=== PATIENT | male | born 1945 | race Caucasian/White ===

== ENCOUNTER → 2016-12-24 | Outpatient (REF) | payer MEDICARE, OTHER ==
[~2016-12-24] MED LIST: /ATOR40TA PO; CEPH2CAP PO; FISHOIL PO; LIPI80TA PO; NORCOTAB PO; OMEP20CA3 PO; [UNRECOGNIZED DRUG - CODE] PO
[2016-12-24 13:02] LABS: ALBUMIN 3.7 GM/DL (3.2-5.2); ALBUMIN/GLOBULIN RATIO 1.06 (1.00-1.93); ALKALINE PHOSPHATASE 63 U/L (45-117); ALT/SGPT 38 U/L (12-78); ANION GAP 7 MEQ/L (8-16); AST/SGOT 20 U/L (15-37); BILIRUBIN,TOTAL 0.3 MG/DL (0.2-1.0); BLOOD UREA NITROGEN 13 MG/DL (7-18); CALCIUM LEVEL 8.3 MG/DL (8.8-10.2); CARBON DIOXIDE LEVEL 29 MEQ/L (21-32); CHLORIDE LEVEL 104 MEQ/L (98-107); CREATININE FOR GFR 1.16 MG/DL (0.70-1.30); GLOMERULAR FILTRATION RATE > 60.0 (>49); GLUCOSE, FASTING 150 MG/DL (80-110); POTASSIUM SERUM 4.4 MEQ/L (3.5-5.1); SODIUM LEVEL 140 MEQ/L (136-145); TOTAL PROTEIN 7.2 GM/DL (6.4-8.2)
[2016-12-24 13:08] LABS: FOLATE > 24.0 NG/ML; VITAMIN B12 LEVEL 279 PG/ML
== END ==
LOC: M SFHCADAM 08:41
PROVIDERS: ATTEND Physician Assistant
DX: E11.9 Type 2 diabetes mellitus without complications (principal); N52.9 Male erectile dysfunction, unspecified; G62.9 Polyneuropathy, unspecified; Z12.5 Encounter for screening for malignant neoplasm of prostate
CPT/HCPCS: 80053; 82043; 82607; 82746; 83036; G0103

== ENCOUNTER → 2017-06-23 | Outpatient (REF) | payer MEDICARE, OTHER ==
[2017-06-23 12:51] LABS: ALBUMIN 3.6 GM/DL (3.2-5.2); ALBUMIN/GLOBULIN RATIO 0.92 (1.00-1.93); ALKALINE PHOSPHATASE 63 U/L (45-117); ALT/SGPT 31 U/L (12-78); ANION GAP 8 MEQ/L (8-16); AST/SGOT 13 U/L (15-37); BILIRUBIN,TOTAL 0.4 MG/DL (0.2-1.0); BLOOD UREA NITROGEN 24 MG/DL (7-18); CALCIUM LEVEL 8.4 MG/DL (8.8-10.2); CARBON DIOXIDE LEVEL 28 MEQ/L (21-32); CHLORIDE LEVEL 106 MEQ/L (98-107); CREATININE FOR GFR 1.06 MG/DL (0.70-1.30); FREE T4 1.13 NG/DL (0.76-1.46); GLOMERULAR FILTRATION RATE > 60.0 (>42); GLUCOSE, FASTING 140 MG/DL (83-110); POTASSIUM SERUM 4.8 MEQ/L (3.5-5.1); SODIUM LEVEL 142 MEQ/L (136-145); TOTAL PROTEIN 7.5 GM/DL (6.4-8.2)
== END ==
LOC: M SFHCADAM 09:11
PROVIDERS: ATTEND Physician Assistant
DX: E11.9 Type 2 diabetes mellitus without complications (principal)

== ENCOUNTER → 2017-08-31 | Outpatient (REF) | payer MEDICARE, OTHER | LOC: M SFHCADAM 14:14 | PROVIDERS: ATTEND Physician Assistant | DX: R19.4 Change in bowel habit (principal) ==

== ENCOUNTER → 2017-09-28 | Outpatient (REF) | payer MEDICARE, OTHER | LOC: M SFHCADAM 12:32 | PROVIDERS: ATTEND Physician Assistant | DX: R19.4 Change in bowel habit (principal) ==

== ENCOUNTER → 2018-08-06 | Outpatient (REF) | payer MEDICARE, OTHER ==
[~2018-08-06] MED LIST changes: +ALTA1CAP4 PO; +ASPI1TAB PO; +BACITAB PO; +CALCTAB68 PO; +FISH7.5C PO; +LEVO25TA5 PO; +METF500T13 PO; +MULT1TAB10 PO; +PROP120C PO; +VITA500T3 PO; +VITA50TA43 PO
[2018-08-06 10:08] LABS: HEMATOCRIT 43.5 % (42.0-52.0); HEMOGLOBIN 14.4 g/dl (13.5-17.5); MEAN CORPUSCULAR HEMOGLOBIN 30.7 pg (27.0-33.0); MEAN CORPUSCULAR HGB CONC 33.1 g/dl (32.0-36.5); MEAN CORPUSCULAR VOLUME 92.8 fl (80.0-96.0); PLATELET COUNT, AUTOMATED 209 10^3/uL (150-450); RED BLOOD COUNT 4.69 10^6/uL (4.30-6.10); WHITE BLOOD COUNT 6.9 10^3/uL (4.0-10.0)
[2018-08-06 11:06] LABS: ALBUMIN 3.6 GM/DL (3.2-5.2); ALT/SGPT 32 U/L (12-78); BILIRUBIN,TOTAL 0.4 MG/DL (0.2-1.0); BLOOD UREA NITROGEN 16 MG/DL (7-18); CALCIUM LEVEL 8.4 MG/DL (8.8-10.2); CARBON DIOXIDE LEVEL 29 MEQ/L (21-32); CHLORIDE LEVEL 102 MEQ/L (98-107); CHOLESTEROL LEVEL 151 MG/DL (<200); CHOLESTEROL RISK RATIO 4.194 (<5); CREATININE FOR GFR 1.13 MG/DL (0.70-1.30); FERRITIN 16 NG/ML (26-388); FOLATE > 24.0 NG/ML; FREE T4 1.08 NG/DL (0.76-1.46); GLOMERULAR FILTRATION RATE > 60.0 (>42); GLUCOSE, FASTING 171 MG/DL (70-100); HDL CHOLESTEROL 36 MG/DL (>40); IRON (FE) 97 UG/DL (65-175); LDL CHOLESTEROL 55 MG/DL (<100); NON-HDL-C 115 MG/DL; PERCENT SATURATION 26.7 % (19.7-50.0); POTASSIUM SERUM 4.2 MEQ/L (3.5-5.1); SODIUM LEVEL 140 MEQ/L (136-145); TOTAL IRON BINDING CAPACITY 363 UG/DL (250-450); TOTAL PROTEIN 7.5 GM/DL (6.4-8.2); TRIGLYCERIDES LEVEL 300 MG/DL (<150)
[2018-08-06 12:26] LABS: HEMOGLOBIN A1c 6.9 %
== END ==
LOC: M SFHCADAM 08:42
PROVIDERS: ATTEND Physician Assistant
DX: E11.9 Type 2 diabetes mellitus without complications (principal); I10 Essential (primary) hypertension; E78.49 Other hyperlipidemia; E55.9 Vitamin D deficiency, unspecified; K21.9 Gastro-esophageal reflux disease without esophagitis; E61.1 Iron deficiency; Z68.32 Body mass index [BMI] 32.0-32.9, adult
CPT/HCPCS: 80053; 80061; 82306; 82607; 82728; 82746; 83036; 83550; 84439; 84443; 85027; 90682; G0008; G0463

== ENCOUNTER → 2018-08-26 | Outpatient (CLI) | payer MEDICARE, BC | LOC: M WHC 09:06 | DX: N43.3 Hydrocele, unspecified (principal); N50.3 Cyst of epididymis; K40.90 Unilateral inguinal hernia, without obstruction or gangrene, not specified as recurrent; N50.89 Other specified disorders of the male genital organs | CPT/HCPCS: 76870 ==

== ENCOUNTER → 2018-10-15 | Outpatient (CLI) | payer MEDICARE, BC, OTHER ==
--- NOTE | 2018-10-15 21:43 | ECGEPIP ---
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
== END ==
LOC: M EKG 10:59
PROVIDERS: ATTEND Anesthesiology
DX: Z01.818 Encounter for other preprocedural examination (principal); I10 Essential (primary) hypertension

== ENCOUNTER 2018-10-19 11:37 | Day surgery (SDC) | payer MEDICARE, BC, OTHER ==
[~2018-10-19] VITALS: Ht 170.2 cm; Wt 93.0 kg
[~2018-10-19 11:37] MED LIST changes: +LIDOCAINE 1% MDV 20ML VIAL SQ PRN; +LIDOCAINE 2% INJ 100 MG/5 ML SDV (FOR ANES.) As Ordered ONE; +MIDAZOLAM INJ 2 MG/2 ML VIAL (J2250) As Ordered ONE; +PROPOFOL 200 MG/20 ML VIAL As Ordered ONE; +ROCURONIUM BROMIDE 50 MG/5 ML VIAL As Ordered ONE; +fentaNYL 250 MCG/5 ML INJECTION (J3010) As Ordered ONE
[2018-10-19] MEDS ORDERED: LR 1,000 ML IV ONE (11:45)
[2018-10-19] MEDS ORDERED: LevoFLOXacin(LEVAQUIN)500 MG/100 ML BAG (J1956) As Ordered ONE (12:09)
[2018-10-19] MEDS ORDERED: BUPIVACAINE/EPIN 0.25% 30 ML VIAL As Ordered ONE (12:13)
[2018-10-19 12:20] VITALS: BP 160/99
[2018-10-19] MEDS ORDERED: PROPRANOLOL 60 MG LA CAP PO ONE (12:30)
[2018-10-19] MEDS ORDERED: LevoFLOXacin IV 500 MG in APPROPRIATE DILUENT 1 EA IV ONE (12:30)
[2018-10-19] MEDS ORDERED: ONDANSETRON 4MG/2ML VIAL (J2405) As Ordered ONE (13:56)
[2018-10-19] MEDS ORDERED: METOCLOPRAMIDE INJ 10MG/2ML VIAL (J2765) As Ordered ONE (13:57)
[2018-10-19] MEDS ORDERED: KETOROLAC 60 MG/2 ML VIAL (J1885) As Ordered ONE (13:57)
[2018-10-19] MEDS ORDERED: ALBUTEROL 6.7GM INHALER **FOR ANES. CART/OMNICELL ONLY As Ordered ONE (13:57)
[2018-10-19] MEDS ORDERED: SUGAMMADEX SODIUM 500 MG/5 ML VIAL (BRIDION) As Ordered ONE (13:57)
--- NOTE | 2018-10-19 14:32 | RO ---
DATE OF PROCEDURE: 10/19/2018 PREPROCEDURE DIAGNOSIS: Left inguinal hernia. POSTPROCEDURE DIAGNOSIS: Left inguinal hernia (incarcerated with sigmoid colon). SURGEON: Dusty Muñoz MD MICA SIZER: Kailyn Bejarano NP (provided trocar exchange, instrument exchange, mesh placement and abdominal wall closure). ANESTHESIA: General endotracheal anesthesia. ESTIMATED BLOOD LOSS: Minimal. PROCEDURE: Robotic-assisted laparoscopic left inguinal hernia repair with ProGrip mesh. BRIEF OPERATIVE SUMMARY: The patient was taken to the operating room and was given general anesthesia. After adequate anesthesia and preoperative antibiotics were given, the patient was prepped and draped in the usual sterile fashion. The patient was placed in a significant Trendelenburg position and once we got him in significant Trendelenburg position, I was able to reduce a good portion, probably 90% of the very large left inguinal hernia. That went down into the scrotum. Once I was able to reduce the majority of this, a supraumbilical incision was made with a skin knife, blunt dissection was carried down to the fascia and Veress needle placed into the abdominal cavity and insufflated with 15 mmHg and a dilating 5 mm trocar was placed. The patient was placed in steep Trendelenburg at this point, and under direct visualization two lateral 8 mm trocars were placed and I was able to reduce the rest of the hernia at this time. This was actually sigmoid colon, which was quite stuck in there, but I was able to get it through with abdominal/hernia manipulation. Once this was reduced, then the peritoneum was taken down with monopolar cut scissors and eventually the flap was created to the umbilical ligament and lateral to the internal ring. Once this peritoneal flap was created, I went down to the hernia sac itself and pressing externally on the hernia sac, I was able to get this reduced and I reduced the entirety, but once again this had gone down into the scrotum on this side and thus there was a great deal of dissection, maybe half that needed to occur, and it was relatively quite adherent distally. Going through some of the attachments with cautery, there was some minimal oozing, but not a significant amount. Eventually, the peritoneum was mobilized off the cord structures, off the vas medially to where it dove into the pelvis. The Noam's was cleared of loose areolar tissue, as well as medial to this. I then placed a ProGrip mesh in the preperitoneal space, and then tacked this with a #3-0 Vicryl suture. Then #3-0 V-Loc was used to close the peritoneum in a running manner. All trocars were removed under direct visualization. #4-0 Vicryl was used to close all skin incisions. Steri-Strips and a dry, sterile dressing were applied. The patient was awakened, extubated and brought to the recovery room awake, alert, hemodynamically stable. Sponge and needle counts were correct times two.
[2018-10-19] MEDS ORDERED: fentaNYL 100 MCG/2 ML INJECTION (J3010) IV PRN (15:00)
[2018-10-19] MEDS ORDERED: NORCO, ANEXSIA 5/325MG TABLET (HYDROcodone/ACETAMINOPHEN) PO PRN (15:00)
[2018-10-19] MEDS ORDERED: PERCOCET 5MG/325MG TAB PO PRN (15:00)
[2018-10-19] MEDS ORDERED: ONDANSETRON 4MG/2ML VIAL (J2405) IV PRN (15:00)
[2018-10-19] MEDS ORDERED: LR 1,000 ML IV SCH ×2 (15:00)
[2018-10-19 16:45] VITALS: BP 138/87
[2018-10-19] MEDS ORDERED: KETOROLAC 30 MG/ML VIAL (J1885) IV SCH (21:00)
== END 2018-10-19 16:55 | disposition home or self-care (01) ==
LOC: M SDC 11:37
PROVIDERS: ATTEND Surgery
DX: K40.30 Unilateral inguinal hernia, with obstruction, without gangrene, not specified as recurrent (principal); I10 Essential (primary) hypertension; E78.5 Hyperlipidemia, unspecified; E11.9 Type 2 diabetes mellitus without complications; K21.9 Gastro-esophageal reflux disease without esophagitis; Z79.82 Long term (current) use of aspirin; Z79.84 Long term (current) use of oral hypoglycemic drugs; E03.9 Hypothyroidism, unspecified; Z87.891 Personal history of nicotine dependence; Z88.0 Allergy status to penicillin
CPT/HCPCS: 49650; C1781; J1885; J1956; J2250; J2405; J2765; J3010

== ENCOUNTER → 2019-07-21 | Outpatient (REF) | payer MEDICARE, OTHER ==
[~2019-07-21] MED LIST changes: -/ATOR40TA PO; -ASPI1TAB PO; +ASPI81TA26 PO; +CYAN500T8 PO; -LIDOCAINE 1% MDV 20ML VIAL SQ PRN; -LIDOCAINE 2% INJ 100 MG/5 ML SDV (FOR ANES.) As Ordered ONE; +LIPI1TAB2 PO; -MIDAZOLAM INJ 2 MG/2 ML VIAL (J2250) As Ordered ONE; +OMEP20CA4 PO; -PROPOFOL 200 MG/20 ML VIAL As Ordered ONE; -ROCURONIUM BROMIDE 50 MG/5 ML VIAL As Ordered ONE; -VITA500T3 PO; -fentaNYL 250 MCG/5 ML INJECTION (J3010) As Ordered ONE
[2019-07-21 13:28] LABS: ALBUMIN 3.4 GM/DL (3.2-5.2); ALT/SGPT 34 U/L (12-78); BILIRUBIN,TOTAL 0.4 MG/DL (0.2-1.0); BLOOD UREA NITROGEN 17 MG/DL (7-18); CALCIUM LEVEL 8.6 MG/DL (8.8-10.2); CARBON DIOXIDE LEVEL 30 MEQ/L (21-32); CHLORIDE LEVEL 105 MEQ/L (98-107); CHOLESTEROL LEVEL 159 MG/DL (<200); CHOLESTEROL RISK RATIO 3.785 (<5); CREATININE FOR GFR 1.08 MG/DL (0.70-1.30); GLOMERULAR FILTRATION RATE > 60.0 (>42); GLUCOSE, FASTING 150 MG/DL (70-100); HDL CHOLESTEROL 42 MG/DL (>40); LDL CHOLESTEROL 77 MG/DL (<100); NON-HDL-C 117 MG/DL; POTASSIUM SERUM 4.7 MEQ/L (3.5-5.1); SODIUM LEVEL 140 MEQ/L (136-145); TRIGLYCERIDES LEVEL 202 MG/DL (<150)
[2019-07-21 13:30] LABS: TOTAL 25(OH) VITAMIN D 28.6 NG/ML (30.0-100.0)
[2019-07-21 13:55] LABS: MALB URINE SIEMENS 7.1 MG/L; MAU/CREAT RATIO 5.5 MCG/MG (0.0-30.0)
[2019-07-21 14:11] LABS: HEMOGLOBIN A1c 6.9 %
== END ==
LOC: M SFHCADAM 07:35
PROVIDERS: ATTEND Physician Assistant
DX: I10 Essential (primary) hypertension (principal); E11.9 Type 2 diabetes mellitus without complications; E78.49 Other hyperlipidemia; E55.9 Vitamin D deficiency, unspecified

== ENCOUNTER 2019-10-27 00:49 | Emergency (ER) | payer MEDICARE, BC, OTHER ==
[~2019-10-27] VITALS: Ht 170.2 cm; Wt 95.3 kg
[~2019-10-27 00:49] MED LIST changes: +OMEP1CAP73 PO; -OMEP20CA4 PO
[2019-10-27 00:50] VITALS: BP 172/86
[2019-10-27] MEDS ORDERED: ADACEL/BOOSTRIX VACCINE (DIPHTH/PERTUSS/ACELL/TETANUS)0.5ML SYR (90715) IM ONE (04:00)
[2019-10-27] MEDS ORDERED: LIDOCAINE 1% MDV 20ML VIAL As Ordered ONE (04:04)
[2019-10-27] MEDS ORDERED: LIDOCAINE 1% MDV 20ML VIAL SC ONE (04:15)
[2019-10-27] MEDS ORDERED: KEFL500C17 PO (04:27)
[2019-10-27] MEDS ORDERED: CEPHALEXIN 500 MG CAP PO ONE (04:30)
[2019-10-27] MEDS ORDERED: METAL LOCK LOOP XX ONE (05:06)
[2019-10-28] MEDS ORDERED: METAL LOCK LOOP XX ONE (20:22)
== END 2019-10-27 05:06 | disposition home or self-care (01) ==
LOC: M ED 00:49
DX: S01.21XA Laceration without foreign body of nose, initial encounter (principal); W19.XXXA Unspecified fall, initial encounter; Y92.003 Bedroom of unspecified non-institutional (private) residence as the place of occurrence of the external cause

== ENCOUNTER → 2020-01-23 | Outpatient (REF) | payer MEDICARE, OTHER ==
[~2020-01-23] MED LIST changes: +KEFL500C17 PO
[2020-01-23 13:12] LABS: HEMATOCRIT 45.8 % (42.0-52.0); HEMOGLOBIN 15.3 g/dl (13.5-17.5); MEAN CORPUSCULAR HEMOGLOBIN 32.1 pg (27.0-33.0); MEAN CORPUSCULAR HGB CONC 33.4 g/dl (32.0-36.5); MEAN CORPUSCULAR VOLUME 96.2 fl (80.0-96.0); PLATELET COUNT, AUTOMATED 239 10^3/uL (150-450); RED BLOOD COUNT 4.76 10^6/uL (4.30-6.10); WHITE BLOOD COUNT 8.2 10^3/uL (4.0-10.0)
[2020-01-23 13:18] LABS: ALBUMIN 3.6 GM/DL (3.2-5.2); ALT/SGPT 41 U/L (12-78); BILIRUBIN,TOTAL 0.4 MG/DL (0.2-1.0); BLOOD UREA NITROGEN 14 MG/DL (7-18); CALCIUM LEVEL 8.7 MG/DL (8.8-10.2); CARBON DIOXIDE LEVEL 31 MEQ/L (21-32); CHLORIDE LEVEL 104 MEQ/L (98-107); CREATININE FOR GFR 1.05 MG/DL (0.70-1.30); GLOMERULAR FILTRATION RATE > 60.0 (>42); GLUCOSE, FASTING 161 MG/DL (70-100); POTASSIUM SERUM 4.5 MEQ/L (3.5-5.1); SODIUM LEVEL 139 MEQ/L (136-145); TOTAL PROTEIN 7.4 GM/DL (6.4-8.2)
[2020-01-23 13:26] LABS: HEMOGLOBIN A1c 7.4 %
== END ==
LOC: M SFHCADAM 10:37
PROVIDERS: ATTEND Physician Assistant
DX: R19.7 Diarrhea, unspecified (principal); E11.9 Type 2 diabetes mellitus without complications

== ENCOUNTER → 2020-08-07 | Outpatient (REF) | payer MEDICARE, OTHER ==
[2020-08-07 12:22] LABS: HEMATOCRIT 45.2 % (42.0-52.0); HEMOGLOBIN 14.6 g/dl (13.5-17.5); MEAN CORPUSCULAR HEMOGLOBIN 31.5 pg (27.0-33.0); MEAN CORPUSCULAR HGB CONC 32.3 g/dl (32.0-36.5); MEAN CORPUSCULAR VOLUME 97.4 fl (80.0-96.0); PLATELET COUNT, AUTOMATED 236 10^3/uL (150-450); RED BLOOD COUNT 4.64 10^6/uL (4.30-6.10)
[2020-08-07 12:52] LABS: HEMOGLOBIN A1c 6.9 %
[2020-08-07 13:12] LABS: MALB URINE SIEMENS 13.6 MG/L; MAU/CREAT RATIO 9.5 MCG/MG (0.0-30.0)
[2020-08-07 13:28] LABS: ALBUMIN 3.4 GM/DL (3.2-5.2); ALT/SGPT 35 U/L (12-78); BILIRUBIN,TOTAL 0.5 MG/DL (0.2-1.0); BLOOD UREA NITROGEN 18 MG/DL (7-18); CALCIUM LEVEL 8.6 MG/DL (8.8-10.2); CARBON DIOXIDE LEVEL 29 MEQ/L (21-32); CHLORIDE LEVEL 104 MEQ/L (98-107); CHOLESTEROL LEVEL 147 MG/DL (<200); CHOLESTEROL RISK RATIO 3.418 (<5); CREATININE FOR GFR 1.02 MG/DL (0.70-1.30); FREE T4 1.04 NG/DL (0.76-1.46); GLOMERULAR FILTRATION RATE > 60.0 (>42); GLUCOSE, FASTING 151 MG/DL (70-100); HDL CHOLESTEROL 43 MG/DL (>40); LDL CHOLESTEROL 66 MG/DL (<100); NON-HDL-C 104 MG/DL; POTASSIUM SERUM 4.7 MEQ/L (3.5-5.1); SODIUM LEVEL 138 MEQ/L (136-145); TOTAL PROTEIN 7.2 GM/DL (6.4-8.2); TRIGLYCERIDES LEVEL 192 MG/DL (<150)
== END ==
LOC: M SFHCADAM 07:27
PROVIDERS: ATTEND Physician Assistant
DX: E11.9 Type 2 diabetes mellitus without complications (principal); I10 Essential (primary) hypertension; E03.8 Other specified hypothyroidism; Z12.5 Encounter for screening for malignant neoplasm of prostate
CPT/HCPCS: 80053; 80061; 82043; 83036; 84439; 84443; 85027; G0103

== ENCOUNTER → 2021-04-26 | Outpatient (REF) | payer MEDICARE, OTHER ==
[~2021-04-26] MED LIST changes: +CYAN500T14 PO; -CYAN500T8 PO
[2021-04-26 18:23] LABS: BASO % 0.4 % (0.0-1.0); EOS # 0.1 10^3/uL (0.0-0.5); EOS % 1.5 % (0.0-3.0); HEMATOCRIT 46.2 % (42.0-52.0); HEMOGLOBIN 15.3 g/dl (13.5-17.5); LYMPH # 1.8 10^3/uL (1.5-5.0); LYMPH % 33.6 % (24.0-44.0); MEAN CORPUSCULAR HEMOGLOBIN 32.3 pg (27.0-33.0); MEAN CORPUSCULAR HGB CONC 33.1 g/dl (32.0-36.5); MEAN CORPUSCULAR VOLUME 97.5 fl (80.0-96.0); MONO # 1.1 10^3/uL (0.0-0.8); MONO % 21.4 % (2.0-8.0); NEUTROPHILS # 2.3 10^3/uL (1.5-8.5); NEUTROPHILS % 42.9 % (36.0-66.0); PLATELET COUNT, AUTOMATED 213 10^3/uL (150-450); RED BLOOD COUNT 4.74 10^6/uL (4.30-6.10); WHITE BLOOD COUNT 5.3 10^3/uL (4.0-10.0)
[2021-04-26 18:54] LABS: ALBUMIN 3.5 GM/DL (3.2-5.2); ALT/SGPT 57 U/L (12-78); BILIRUBIN,TOTAL 0.3 MG/DL (0.2-1.0); BLOOD UREA NITROGEN 20 MG/DL (7-18); CALCIUM LEVEL 7.9 MG/DL (8.8-10.2); CARBON DIOXIDE LEVEL 27 MEQ/L (21-32); CHLORIDE LEVEL 106 MEQ/L (98-107); CHOLESTEROL LEVEL 104 MG/DL (<200); CREATININE FOR GFR 1.18 MG/DL (0.70-1.30); FREE T4 1.11 NG/DL (0.76-1.46); GLOMERULAR FILTRATION RATE > 60.0 (>42); GLUCOSE, FASTING 128 MG/DL (70-100); HDL CHOLESTEROL 32 MG/DL (>40); LDL CHOLESTEROL 45 MG/DL (<100); MAGNESIUM LEVEL 2.2 MG/DL (1.8-2.4); NON-HDL-C 72 MG/DL; POTASSIUM SERUM 3.8 MEQ/L (3.5-5.1); SODIUM LEVEL 140 MEQ/L (136-145); TOTAL PROTEIN 7.3 GM/DL (6.4-8.2); TRIGLYCERIDES LEVEL 133 MG/DL (<150)
[2021-04-26 18:58] LABS: TOTAL 25(OH) VITAMIN D 28.8 NG/ML (30.0-100.0)
[2021-04-26 19:01] LABS: HEMOGLOBIN A1c 7.3 %
== END ==
LOC: M SFHCADAM 16:03
PROVIDERS: ATTEND Physician Assistant
DX: E86.0 Dehydration (principal); R25.2 Cramp and spasm; E11.9 Type 2 diabetes mellitus without complications; I10 Essential (primary) hypertension; E78.49 Other hyperlipidemia; E55.9 Vitamin D deficiency, unspecified

== ENCOUNTER → 2021-07-30 | Outpatient (REF) | payer MEDICARE, OTHER, BC ==
[2021-07-30 14:23] LABS: BASO % 0.4 % (0.0-1.0); EOS # 0.2 10^3/uL (0.0-0.5); EOS % 1.9 % (0.0-3.0); HEMATOCRIT 45.4 % (42.0-52.0); HEMOGLOBIN 15.2 g/dl (13.5-17.5); LYMPH # 2.7 10^3/uL (1.5-5.0); LYMPH % 35.2 % (24.0-44.0); MEAN CORPUSCULAR HEMOGLOBIN 32.1 pg (27.0-33.0); MEAN CORPUSCULAR HGB CONC 33.5 g/dl (32.0-36.5); MONO # 0.6 10^3/uL (0.0-0.8); MONO % 7.6 % (2.0-8.0); NEUTROPHILS # 4.2 10^3/uL (1.5-8.5); NEUTROPHILS % 54.6 % (36.0-66.0); PLATELET COUNT, AUTOMATED 242 10^3/uL (150-450); RED BLOOD COUNT 4.73 10^6/uL (4.30-6.10); WHITE BLOOD COUNT 7.7 10^3/uL (4.0-10.0)
[2021-07-30 14:53] LABS: ALBUMIN 3.4 GM/DL (3.2-5.2); ALT/SGPT 28 U/L (12-78); BILIRUBIN,TOTAL 0.4 MG/DL (0.2-1.0); BLOOD UREA NITROGEN 15 MG/DL (7-18); CALCIUM LEVEL 8.5 MG/DL (8.8-10.2); CARBON DIOXIDE LEVEL 33 MEQ/L (21-32); CHLORIDE LEVEL 106 MEQ/L (98-107); CREATININE FOR GFR 1.16 MG/DL (0.70-1.30); GLOMERULAR FILTRATION RATE > 60.0 (>42); GLUCOSE, FASTING 156 MG/DL (70-100); POTASSIUM SERUM 4.8 MEQ/L (3.5-5.1); SODIUM LEVEL 140 MEQ/L (136-145); TOTAL PROTEIN 7.4 GM/DL (6.4-8.2)
== END ==
LOC: M LABDRWAD 12:29
PROVIDERS: ATTEND Podiatrist
DX: M20.41 Other hammer toe(s) (acquired), right foot (principal); M20.62 Acquired deformities of toe(s), unspecified, left foot; M79.672 Pain in left foot

== ENCOUNTER → 2021-08-05 | Outpatient (CLI) | payer MEDICARE, BC, OTHER ==
[~2021-08-05] MED LIST changes: +CALCCAP4 PO; +CENTTAB PO
== END ==
LOC: M LABSMTC 10:46
PROVIDERS: ATTEND Anesthesiology
DX: Z01.812 Encounter for preprocedural laboratory examination (principal); Z20.822 Contact with and (suspected) exposure to COVID-19

== ENCOUNTER 2021-08-09 06:55 | Day surgery (SDC) | payer MEDICARE, BC, OTHER ==
[~2021-08-09] VITALS: Ht 170.2 cm; Wt 90.6 kg
[~2021-08-09 06:55] MED LIST changes: +LR 1,000 ML IV ONE; +VANCOMYCIN HCL 750 MG, VIAL MATE ADAPTER 1 EACH in NS 250 ML IV ONE
[2021-08-09] MEDS ORDERED: GLYCOPYRROLATE INJ 0.2 MG/ML 2 ML VIAL As Ordered ONE (08:06)
[2021-08-09] MEDS ORDERED: LIDOCAINE 2% 100MG/5ML SDV (FOR ANES.) As Ordered ONE (08:06)
[2021-08-09] MEDS ORDERED: KETAMINE HCL 200 MG/20 ML VIAL As Ordered ONE (08:06)
[2021-08-09] MEDS ORDERED: propofoL 200 MG/20 ML VIAL As Ordered ONE (08:06)
[2021-08-09] MEDS ORDERED: MIDAZOLAM INJ 2MG/2ML VIAL (J2250 PER 1MG) As Ordered ONE (08:06)
[2021-08-09] MEDS ORDERED: fentaNYL 100 MCG/2 ML INJECTION (J3010) As Ordered ONE (08:06)
[2021-08-09] MEDS ORDERED: ONDANSETRON 4MG/2ML VIAL As Ordered ONE (08:06)
[2021-08-09] MEDS ORDERED: BUPIVACAINE HCL 0.5% 10ML VIAL As Ordered ONE ×2 (08:54→09:19)
[2021-08-09] MEDS ORDERED: LIDOCAINE 2% MDV 20ML VIAL As Ordered ONE (08:55)
[2021-08-09] MEDS ORDERED: dexameTHASONE 4 MG/ML 1ML VIAL (J1100 PER 1MG) As Ordered ONE (08:55)
[2021-08-09] MEDS ORDERED: GENTAMICIN SULF 80MG/2ML VIAL As Ordered ONE (08:55)
[2021-08-09] MEDS ORDERED: oxyCODONE 5MG TAB PO PRN (10:55)
[2021-08-09] MEDS ORDERED: LR 1,000 ML IV SCH (10:55)
[2021-08-09] MEDS ORDERED: fentaNYL 100 MCG/2 ML INJECTION (J3010) IV PRN (10:55)
[2021-08-09] MEDS ORDERED: ONDANSETRON 4MG/2ML VIAL IV PRN (10:55)
[2021-08-09 11:15] VITALS: BP 123/72
--- NOTE | 2021-08-09 11:21 | REP ---
INDICATION: PROXIMAL INTERPHALANGEAL JOINT ARTHROPLASTY 2NG, 3RD AND 4TH COMPARISON: 09/17/2009. TECHNIQUE: Three portable views left foot. FINDINGS: A metallic pin extends through the phalanges of the 2nd toe into the distal aspect of the 2nd metatarsal. A metallic pin extends through the phalanges of the 3rd toe. Another metallic pin extends through the phalanges of the 4th toe. The osseous structures are well-aligned. IMPRESSION: Postsurgical changes as above. <Electronically signed by Michael Christian > 08/09/21 1118
--- NOTE | 2021-08-09 14:12 | RO ---
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 PROCEDURE: 1. Proximal interphalangeal joint arthroplasty with external wire fixation, second toe, left foot. 2. Proximal interphalangeal joint arthroplasty with external wire fixation, third toe, left foot. 3. Proximal interphalangeal joint arthroplasty, fourth toe with external wire fixation, left foot. 4. Capsulotomy, second metatarsophalangeal joint, left foot. 5. Capsulotomy, third metatarsophalangeal joint, left foot. 6. Dorsal capsulotomy, fourth metatarsophalangeal joint, left foot. SURGEON: Jose Roth DPM [employer] H[employer] MACHINE OPERATOR: None. ANESTHESIA: Local MAC. HEMOSTASIS: Ankle pneumatic tourniquet at 250 mmHg, 57 minutes, left ankle. HARDWARE UTILIZED: 0.045 Serene wire x3. DESCRIPTION OF OPERATION: On 08/09/21, this 76-year-old male was taken from his hospital room to the operating room and placed on the operating table in supine position. Following the induction of IV sedation and local and regional anesthesia, the following procedure was performed. Proximal interphalangeal joint arthroplasty, second toe, with external wire fixation, 0.045 x1, left foot. Attention was directed to the patient's second toe. There was noted to be a hammertoe deformity. At this time, a linear incision was placed over the proximal interphalangeal joint of the second toe measuring approximately 2-3 cm in length. The incision was deepened in the subcutaneous tissues and all crossing venous tributaries were identified, underscored, clamped, cut, ligated or electrocoagulated as necessary A transverse tenotomy and capsulotomy was performed at the level of the proximal interphalangeal joint. The extensor expansion and then scott were released from the metatarsophalangeal joint utilizing a sagittal saw and osteotomy was performed to the level of the anatomical neck of the proximal phalanx from dorsal to plantar [id number]. This was extirpated from the wound. The base of the middle phalanx was then osteotomized from dorsal to plantar, removing the cartilage on the base of the middle phalanx. This was extirpated from the wound. The wound was flushed with copious amounts of dilute bacitracin, neomycin, and polymyxin B solution. Attention was directed to the patient's metatarsophalangeal joint where the following procedure was performed. Second metatarsophalangeal joint capsulotomy, second toe, left foot. Attention was directed to the patient's second toe where a stab incision was placed over the second metatarsophalangeal joint. The incision was deepened. The extensor tendon was then freed and placed from the proximal interphalangeal joint wound into the more proximal wound utilizing a hemostat and the tendon was freed additionally along the extensor expansion and scott. Utilizing a scalpel, the dorsal capsulotomy was performed and the plantar plate was released with a metatarsal elevator. This reduced the deformity on the second toe. Utilizing hemostat, the extensor tendon was then placed into the more distal wound and the extensor tendon was repaired with 3-0 Vicryl. Just prior to the repair of this tendon, a K-wire was driven through the middle and distal phalanges retrograde into the proximal phalanx and across the metatarsophalangeal joint with slight overcorrection of the second toe. The wire was bent and a protective cap then placed. Attention was then directed towards closure. The extensor tendon was coapted and maintained with 3-0 Vicryl in a simple interrupted type fashion. The skin incision was coapted and maintained using 4-0 Prolene in a simple interrupted type fashion. Attention was directed to the patient's third toe where the following procedure was performed. Proximal interphalangeal joint arthroplasty with external wire fixation, 0.045 x1, third toe, left foot. Attention was directed to the patient's third toe where the procedure performed on the second toe was now performed on third toe without variation or deletion with the only exception being that the K-wire did not extend across the metatarsophalangeal joint. Attention was then directed to the third metatarsophalangeal joint where the procedure performed on the second metatarsophalangeal joint was now performed on the third metatarsophalangeal joint without variation or deletion with the only exception being that of anatomical location. Attention was then directed to the patient's fourth toe where the following procedure was performed. Proximal interphalangeal joint arthroplasty with external wire fixation, 0.045 x1, fourth toe, left foot. Attention was directed to the patient's fourth toe of the left foot where the procedure performed on the second toe was now performed on fourth toe with the following variation: The K-wire did not cross the metatarsophalangeal joint and the wire was placed in the base of the proximal phalanx. Attention was then directed to the fourth metatarsophalangeal joint where the following procedure was performed. Dorsal capsulotomy, fourth metatarsophalangeal joint, left foot. Attention was directed to the patient's fourth metatarsophalangeal joint where the procedure performed on the second metatarsophalangeal joint was now performed on the fourth metatarsophalangeal joint without variation or deletion, the only exception being that of anatomical location. Attention was then directed towards bandaging where a sterile compressive bandage was applied consisting for Adaptic, 4x4s, 4x4 splints, Myra, Kerlix and Coban. The ankle pneumatic tourniquet was rapidly deflated and instantaneous capillary filling time was noted to digits 1-5 of the patient's left foot. The patient apparently tolerated the surgical procedure well and was taken from the OR to the recovery room for further monitoring by the anesthesia department. Postoperative instructions were given upon discharge.
== END 2021-08-09 11:50 | disposition home or self-care (01) ==
LOC: M SDC 06:55
PROVIDERS: ATTEND Podiatrist
DX: M20.42 Other hammer toe(s) (acquired), left foot (principal); M62.472 Contracture of muscle, left ankle and foot; M79.672 Pain in left foot; I10 Essential (primary) hypertension; E78.00 Pure hypercholesterolemia, unspecified; E11.9 Type 2 diabetes mellitus without complications; E03.9 Hypothyroidism, unspecified; M19.90 Unspecified osteoarthritis, unspecified site; G51.0 Bell's palsy; R06.83 Snoring; Z87.891 Personal history of nicotine dependence; Z88.0 Allergy status to penicillin; Z79.899 Other long term (current) drug therapy; Z79.82 Long term (current) use of aspirin; Z79.84 Long term (current) use of oral hypoglycemic drugs
CPT/HCPCS: 28270; 28285; 73630; 88300; J1100; J1580; J2250; J2405; J3010; J3370

== ENCOUNTER → 2021-08-27 | Outpatient (REF) | payer MEDICARE, OTHER ==
[~2021-08-27] MED LIST changes: -LR 1,000 ML IV ONE; -VANCOMYCIN HCL 750 MG, VIAL MATE ADAPTER 1 EACH in NS 250 ML IV ONE
[2021-08-27 12:39] LABS: HEMOGLOBIN A1c 7.1 %
[2021-08-27 12:55] LABS: FOLATE 21.6 NG/ML
== END ==
LOC: M SFHCADAM 08:02
PROVIDERS: ATTEND Physician Assistant
DX: K21.9 Gastro-esophageal reflux disease without esophagitis (principal); E11.9 Type 2 diabetes mellitus without complications; I10 Essential (primary) hypertension; Z12.5 Encounter for screening for malignant neoplasm of prostate; Z23 Encounter for immunization
CPT/HCPCS: 82607; 82746; 83036; 90682; G0008; G0103

== ENCOUNTER → 2022-03-03 | Outpatient (REF) | payer MEDICARE, OTHER ==
[2022-03-03 12:58] LABS: HEMATOCRIT 40.9 % (42.0-52.0); HEMOGLOBIN 13.7 g/dl (13.5-17.5); MEAN CORPUSCULAR HEMOGLOBIN 32.9 pg (27.0-33.0); MEAN CORPUSCULAR HGB CONC 33.5 g/dl (32.0-36.5); MEAN CORPUSCULAR VOLUME 98.1 fl (80.0-96.0); PLATELET COUNT, AUTOMATED 235 10^3/uL (150-450); RED BLOOD COUNT 4.17 10^6/uL (4.30-6.10); WHITE BLOOD COUNT 6.7 10^3/uL (4.0-10.0)
[2022-03-03 13:18] LABS: HEMOGLOBIN A1c 7.1 %
[2022-03-03 13:28] LABS: ALBUMIN 3.4 GM/DL (3.2-5.2); ALT/SGPT 31 U/L (12-78); BILIRUBIN,TOTAL 0.5 MG/DL (0.2-1.0); BLOOD UREA NITROGEN 18 MG/DL (7-18); CALCIUM LEVEL 8.8 MG/DL (8.8-10.2); CARBON DIOXIDE LEVEL 29 MEQ/L (21-32); CHLORIDE LEVEL 106 MEQ/L (98-107); CHOLESTEROL LEVEL 150 MG/DL (<200); CHOLESTEROL RISK RATIO 3.658 (<5); CREATININE FOR GFR 1.09 MG/DL (0.70-1.30); FREE T4 1.06 NG/DL (0.76-1.46); GLOMERULAR FILTRATION RATE > 60.0 (>42); GLUCOSE, FASTING 156 MG/DL (70-100); HDL CHOLESTEROL 41 MG/DL (>40); LDL CHOLESTEROL 71 MG/DL (<100); NON-HDL-C 109 MG/DL; POTASSIUM SERUM 4.6 MEQ/L (3.5-5.1); SODIUM LEVEL 140 MEQ/L (136-145); TRIGLYCERIDES LEVEL 191 MG/DL (<150)
== END ==
LOC: M SFHCADAM 07:30
PROVIDERS: ATTEND Physician Assistant
DX: K21.9 Gastro-esophageal reflux disease without esophagitis (principal); E11.9 Type 2 diabetes mellitus without complications; I10 Essential (primary) hypertension

== ENCOUNTER → 2022-08-28 | Outpatient (REF) | payer MEDICARE, OTHER ==
[~2022-08-28] MED LIST changes: +FISH10005 PO; -FISH7.5C PO
[2022-08-28 14:02] LABS: HEMOGLOBIN A1c 7.3 % (4.0-6.0)
[2022-08-28 16:53] LABS: BLOOD UREA NITROGEN 16 MG/DL (9-23); CALCIUM LEVEL 8.5 MG/DL (8.3-10.6); CARBON DIOXIDE LEVEL 29 MMOL/L (20-31); CHLORIDE LEVEL 104 MMOL/L (98-107); CREATININE FOR GFR 0.94 MG/DL (0.70-1.30); FREE T4 1.36 NG/DL (0.89-1.76); GLOMERULAR FILTRATION RATE > 60.0 (>42); GLUCOSE, FASTING 174 MG/DL (74-106); POTASSIUM SERUM 5.3 MMOL/L (3.5-5.1); SODIUM LEVEL 140 MMOL/L (136-145); THYROID STIMULATING HORMONE 1.334 uIU/ML (0.55-4.78); VITAMIN B12 LEVEL 1190 PG/ML (211-911)
[2022-08-28 19:55] LABS: FOLATE > 24.0 NG/ML (>5.4)
== END ==
LOC: M SFHCADAM 09:02
PROVIDERS: ATTEND Physician Assistant
DX: Z12.5 Encounter for screening for malignant neoplasm of prostate (principal); D75.89 Other specified diseases of blood and blood-forming organs; E11.9 Type 2 diabetes mellitus without complications; E03.8 Other specified hypothyroidism
CPT/HCPCS: 80048; 82607; 82746; 83036; 84439; 84443; G0103

== ENCOUNTER → 2022-12-26 | Outpatient (REF) | payer MEDICARE, OTHER ==
[2022-12-26 15:30] LABS: ALBUMIN 3.6 G/DL (3.2-5.2); ALKALINE PHOSPHATASE 64 U/L (46-116); ALT/SGPT 25 U/L (7.0-40); AST/SGOT 15 U/L (<34); BILIRUBIN,TOTAL 0.7 MG/DL (0.3-1.2); BLOOD UREA NITROGEN 19 MG/DL (9-23); CALCIUM LEVEL 8.6 MG/DL (8.3-10.6); CARBON DIOXIDE LEVEL 28 MMOL/L (20-31); CHLORIDE LEVEL 103 MMOL/L (98-107); CREATININE FOR GFR 0.98 MG/DL (0.70-1.30); GLOMERULAR FILTRATION RATE > 60.0 (>42); GLUCOSE, FASTING 127 MG/DL (74-106); POTASSIUM SERUM 4.2 MMOL/L (3.5-5.1); SODIUM LEVEL 137 MMOL/L (136-145)
== END ==
LOC: M SFHCADAM 08:03
PROVIDERS: ATTEND Physician Assistant
DX: E11.9 Type 2 diabetes mellitus without complications (principal)

== ENCOUNTER → 2023-11-10 | Outpatient (REF) | payer MEDICARE, OTHER ==
[2023-11-10 13:41] LABS: BLOOD UREA NITROGEN 17 MG/DL (9-23); CALCIUM LEVEL 8.6 MG/DL (8.3-10.6); CARBON DIOXIDE LEVEL 30 MMOL/L (20-31); CHLORIDE LEVEL 108 MMOL/L (98-107); CREATININE FOR GFR 0.98 MG/DL (0.70-1.30); GLOMERULAR FILTRATION RATE > 60.0 (>42); GLUCOSE, FASTING 156 MG/DL (74-106); POTASSIUM SERUM 4.3 MMOL/L (3.5-5.1); SODIUM LEVEL 139 MMOL/L (136-145)
[2023-11-10 13:51] LABS: HEMOGLOBIN A1c 7.2 % (4.0-6.0)
== END ==
LOC: M SFHCADAM 08:28
PROVIDERS: ATTEND Physician Assistant
DX: E11.9 Type 2 diabetes mellitus without complications (principal)

== ENCOUNTER → 2023-11-11 | Outpatient (CLI) | payer MEDICARE, OTHER, BC | LOC: M ADAMS 15:05 | PROVIDERS: ATTEND Physician Assistant | DX: M77.02 Medial epicondylitis, left elbow (principal) ==

== ENCOUNTER → 2023-11-30 | Outpatient (REF) | payer MEDICARE, BC, OTHER | LOC: M SFHCADAM 11:00 | PROVIDERS: ATTEND Family Medicine | DX: R05.1 Acute cough (principal) ==

== ENCOUNTER → 2023-12-23 | Outpatient (REF) | payer MEDICARE, OTHER | LOC: M SFHCADAM 14:01 | PROVIDERS: ATTEND Physician Assistant | DX: J06.9 Acute upper respiratory infection, unspecified (principal) ==

== ENCOUNTER → 2024-05-31 | Outpatient (REF) | payer MEDICARE, BC ==
[2024-05-31 12:55] LABS: BASO % 0.3 % (0.0-1.0); EOS # 0.2 10^3/uL (0.0-0.5); EOS % 2.1 % (0.0-3.0); HEMOGLOBIN 15.6 g/dl (13.5-17.5); LYMPH # 2.1 10^3/uL (1.5-5.0); LYMPH % 27.2 % (24.0-44.0); MEAN CORPUSCULAR HEMOGLOBIN 31.8 pg (27.0-33.0); MEAN CORPUSCULAR HGB CONC 32.5 g/dl (32.0-36.5); MONO # 0.6 10^3/uL (0.0-0.8); MONO % 7.9 % (2.0-8.0); NEUTROPHILS # 4.8 10^3/uL (1.5-8.5); NEUTROPHILS % 62.4 % (36.0-66.0); PLATELET COUNT, AUTOMATED 215 10^3/uL (150-450); WHITE BLOOD COUNT 7.7 10^3/uL (4.0-10.0)
[2024-05-31 12:59] LABS: PSA SCREENING 0.29 NG/ML (< 4.00)
[2024-05-31 13:01] LABS: ALBUMIN 3.6 G/DL (3.2-5.2); ALKALINE PHOSPHATASE 62 U/L (46-116); ALT/SGPT 25 U/L (7.0-40); AST/SGOT 10 U/L (<34); BILIRUBIN,TOTAL 0.7 MG/DL (0.3-1.2); BLOOD UREA NITROGEN 16 MG/DL (9-23); CALCIUM LEVEL 8.6 MG/DL (8.3-10.6); CARBON DIOXIDE LEVEL 25 MMOL/L (20-31); CHLORIDE LEVEL 108 MMOL/L (98-107); CHOLESTEROL LEVEL 151 MG/DL (<200); CHOLESTEROL RISK RATIO 3.67 (<5); CREATININE FOR GFR 0.91 MG/DL (0.70-1.30); GLOMERULAR FILTRATION RATE > 60.0 (>42); GLUCOSE, FASTING 135 MG/DL (74-106); HDL CHOLESTEROL 41.1 MG/DL (>40); LDL CHOLESTEROL 81.1 MG/DL (<100); NON-HDL-C 109.9 MG/DL; POTASSIUM SERUM 4.3 MMOL/L (3.5-5.1); SODIUM LEVEL 138 MMOL/L (136-145); TOTAL PROTEIN 7.3 G/DL (5.7-8.2); TRIGLYCERIDES LEVEL 144 MG/DL (<150)
[2024-05-31 13:03] LABS: FREE T4 1.25 NG/DL (0.89-1.76); THYROID STIMULATING HORMONE 3.237 uIU/ML (0.55-4.78)
[2024-05-31 14:15] LABS: HEMOGLOBIN A1c 7.3 % (4.0-6.0)
== END ==
LOC: M SFHCADAM 09:39
PROVIDERS: ATTEND Physician Assistant
DX: E11.9 Type 2 diabetes mellitus without complications (principal); I10 Essential (primary) hypertension; E03.8 Other specified hypothyroidism; I25.10 Atherosclerotic heart disease of native coronary artery without angina pectoris; R19.7 Diarrhea, unspecified; Z12.5 Encounter for screening for malignant neoplasm of prostate
CPT/HCPCS: 80053; 80061; 83036; 84439; 84443; 85025; G0103

== ENCOUNTER → 2024-08-16 | Outpatient (REF) | payer MEDICARE, BC ==
[2024-08-16 13:19] LABS: BLOOD UREA NITROGEN 17 MG/DL (9-23); CALCIUM LEVEL 8.8 MG/DL (8.3-10.6); CARBON DIOXIDE LEVEL 31 MMOL/L (20-31); CHLORIDE LEVEL 105 MMOL/L (98-107); CREATININE FOR GFR 0.92 MG/DL (0.70-1.30); GLOMERULAR FILTRATION RATE > 60.0 (>42); GLUCOSE, FASTING 151 MG/DL (74-106); POTASSIUM SERUM 4.5 MMOL/L (3.5-5.1); SODIUM LEVEL 138 MMOL/L (136-145)
[2024-08-16 13:52] LABS: HEMOGLOBIN A1c 7.4 % (4.0-6.0)
== END ==
LOC: M SFHCADAM 07:02
PROVIDERS: ATTEND Physician Assistant
DX: E11.9 Type 2 diabetes mellitus without complications (principal)

== ENCOUNTER → 2024-12-07 | Outpatient (REF) | payer MEDICARE, BC ==
[~2024-12-07] MED LIST changes: +ATOR-398 PO; -LIPI80TA PO
[2024-12-08 16:07] LABS: CREATININE, URINE 131.1 MG/DL
[2024-12-08 16:08] LABS: MALB URINE SIEMENS < 3.0 MG/L
[2024-12-08 16:10] LABS: FREE T4 1.73 NG/DL (0.89-1.76); THYROID STIMULATING HORMONE 2.562 uIU/ML (0.55-4.78)
[2024-12-08 16:13] LABS: LIPASE 28 U/L (12-53)
[2024-12-08 16:14] LABS: AMYLASE 41 U/L (30-118)
[2024-12-08 16:15] LABS: ALBUMIN 3.6 G/DL (3.2-5.2); ALKALINE PHOSPHATASE 58 U/L (40-129); ALT/SGPT 24 U/L (7.0-40); AST/SGOT 11 U/L (<34); BILIRUBIN,TOTAL 0.6 MG/DL (0.3-1.2); BLOOD UREA NITROGEN 17 MG/DL (9-23); CALCIUM LEVEL 8.6 MG/DL (8.3-10.6); CARBON DIOXIDE LEVEL 28 MMOL/L (20-31); CHLORIDE LEVEL 106 MMOL/L (98-107); CHOLESTEROL LEVEL 148 MG/DL (<200); CHOLESTEROL RISK RATIO 3.34 (<5); CREATININE FOR GFR 1.03 MG/DL (0.70-1.30); GLOMERULAR FILTRATION RATE > 60.0 (>42); GLUCOSE, FASTING 117 MG/DL (74-106); HDL CHOLESTEROL 44.2 MG/DL (>40); LDL CHOLESTEROL 73.8 MG/DL (<100); NON-HDL-C 103.8 MG/DL; POTASSIUM SERUM 4.6 MMOL/L (3.5-5.1); SODIUM LEVEL 140 MMOL/L (136-145); TOTAL PROTEIN 7.1 G/DL (5.7-8.2); TRIGLYCERIDES LEVEL 150 MG/DL (<150)
[2024-12-08 16:22] LABS: HEMOGLOBIN A1c 6.6 % (4.0-6.0)
== END ==
LOC: M SFHCADAM 08:23
PROVIDERS: ATTEND Physician Assistant
DX: E11.9 Type 2 diabetes mellitus without complications (principal); E03.8 Other specified hypothyroidism

== ENCOUNTER → 2025-04-27 | Outpatient (REF) | payer MEDICARE, BC ==
[2025-04-27 15:26] LABS: ESTIMATED AVERAGE GLUCOSE 148.0 MG/DL (60-110)
[2025-04-27 15:36] LABS: ALT/SGPT 24.0 U/L (7.0-40); AST/SGOT 16.0 U/L (<34); CALCIUM LEVEL 8.3 MG/DL (8.3-10.6); CARBON DIOXIDE LEVEL 27.0 MMOL/L (20-31); CHLORIDE LEVEL 105.0 MMOL/L (98-107); CREATININE FOR GFR 0.93 MG/DL (0.70-1.30); GLOMERULAR FILTRATION RATE 84.1 (>42); POTASSIUM SERUM 4.2 MMOL/L (3.5-5.1); SODIUM LEVEL 142.0 MMOL/L (136-145)
== END ==
LOC: M SFHCADAM 07:04
PROVIDERS: ATTEND Physician Assistant
DX: E11.9 Type 2 diabetes mellitus without complications (principal); I10 Essential (primary) hypertension; I25.10 Atherosclerotic heart disease of native coronary artery without angina pectoris; L98.9 Disorder of the skin and subcutaneous tissue, unspecified